=== PATIENT | male | born 1950 | race Caucasian/White ===

== ENCOUNTER 2023-07-22 09:06 | Inpatient (IN) ==
--- NOTE | 2023-06-30 16:13 | PAT Medication Instructions ---
Medication Instructions Date of Service June 30, 2023 Home Medications acebutolol 400 mg capsule 400 mg PO BID acetaminophen 650 mg tablet 650 mg PO Q8H PRN amlodipine 2.5 mg tablet 2.5 mg PO QPM aspirin 81 mg tablet 81 mg PO QPM clopidogrel 75 mg tablet (Plavix) 75 mg PO QAM empagliflozin 10 mg tablet (Jardiance) 10 mg PO QAM ibuprofen 100 mg tablet 200 mg PO Q6H PRN insulin detemir U-100 100 unit/mL subcutaneous solution (Levemir U-100 Insulin) 30 unit subcut HS lisinopril 20 mg tablet 20 mg PO QAM nitroglycerin 0.3 mg sublingual tablet (Nitrostat) mg sublingual UD PRN pregabalin 50 mg capsule (Lyrica) 50 mg PO UD rosuvastatin 40 mg tablet (Crestor) 40 mg PO QPM sitagliptin phos 100 mg-metformin ER 1,000 mg tablet,extend rel 24h mp (Janumet XR) 1 tab PO PM STOP 3 days before surgery empagliflozin 10 mg tablet (Jardiance) 10 mg PO QAM Continue as directed pregabalin 50 mg capsule (Lyrica) 50 mg PO UD nitroglycerin 0.3 mg sublingual tablet (Nitrostat) mg sublingual UD PRN(if nee ded) ASK your surgeon for instructions ibuprofen 100 mg tablet 200 mg PO Q6H PRN ASK your prescriber and surgeon aspirin 81 mg tablet 81 mg PO QPM clopidogrel 75 mg tablet (Plavix) 75 mg PO QAM DO NOT take the morning of surgery lisinopril 20 mg tablet 20 mg PO QAM Take morning of surgery With a small sip of water, OTHERWISE NOTHING TO EAT OR DRINK AFTER MIDNIGHT: acebutolol 400 mg capsule 400 mg PO BID acetaminophen 650 mg tablet 650 mg PO Q8H PRN(if needed) Take evening before surgery acebutolol 400 mg capsule 400 mg PO BID acetaminophen 650 mg tablet 650 mg PO Q8H PRN(if needed) amlodipine 2.5 mg tablet 2.5 mg PO QPM insulin detemir U-100 100 unit/mL subcutaneous solution (Levemir U-100 Insulin) 30 unit subcut HS rosuvastatin 40 mg tablet (Crestor) 40 mg PO QPM sitagliptin phos 100 mg-metformin ER 1,000 mg tablet,extend rel 24h mp (Janumet XR) 1 tab PO PM Other Notes If you have any questions please call us at [phone] or [phone] or [phone] or [phone]
--- NOTE | 2023-07-05 14:12 | Anesthesiology Consultation ---
Date of Service July 05, 2023 Assessment & Plan (1) Encounter for pre-operative examination: Plan - check BSG am DOS. - Case discussed with Dr. Reveles who advised patient can proceed from cardiology clearance standpoint, surgeon's office has been notified by myself that surgeon's office needs to coordinate admitting patient to telemetry per cardiology. Patient made aware, verbalized understanding, denied questions or concerns. - difficult intubation: limited cervical spine extension. - A1c 8% 06/22/23, patient started Jardiance 1 week ago: to PCP and surgeon if A1c needs repeated prior to surgery. Surgeon's office made aware. Optimization form to be faxed with PAT testing to PCP. Acceptable to proceed at current A1c per Giselle with surgeon's office. - cardiology pre-operative evaluation 07/06/23: "...preoperative cardiac clearance, follow up of cardiac arrhythmia and coronary artery disease and venous disease...blood pressure was noted to be elevated...amlodipine 2.5 mg daily was initiated...blood pressure had improved...further medication adjustment was not required...L2-L4 decompression and fusion...ECG reviewed...sinus bradycardia with HR 54. Nonspecific T wave changes are noted. When compared to previous ECG done 03/23/23, heart rate has decreased from 72, ventricular ectopy is not present on current ECG, otherwise unchanged. Significant ST/T wave abnormalities are not present...multiple stents placed to RCA...other coronary arteries had nonobstructive disease...stress testing is not required prior to surgery...ischemic cardiomyopathy...EF 45%...judicious administration of IV fluids in the perioperative period is warranted as he is at risk of volume overload...recommend monitoring volume status closely...Plavix may be d/c'd 5-7 days prior to surgery. We would recommend reinitiating this medication BRYANNA after surgery...does not require further invasive or noninvasive cardiovascular testing or procedures prior to proceeding with planned surgery...intermediate cardiovascular risk candidate. Would recommend telemetry monitoring throughout the perioperative period as he does have a history of bradycardia and ventricular ectopy..." - Awaiting surgeon ordered medical clearance 07/14/23 and testing from [facility] Dr. Handy Larios Card[facility] office 07/06/23, echo, carotid imaging if available. Chart Review Chart Review: Pending: Refer to Additional Notes / Consult section and Patient seen in Pre Admission Testing Teaching & Discussion Pre-Anesthesia Teaching/Discussion Notes: Instructed NPO after midnight before surgery, except medications with 15 cc of water. Medication instructions provided according to the PAT guidelines. History Surgery Operation Date: 07/22/23 07:45 Proposed Procedures p L2-L4 Decompression and Fusion, Spinal Cord Monitoirng - Fred Hook, Height/Weight Height: 5 ft 10 in Weight: 101.4 kg Allergies Allergy/AdvReac Type Severity Reaction Status Date / Time digoxin Allergy Severe Rash Verified 06/30/23 15:04 famotidine [From Pepcid] Allergy Unknown tremors Verified 06/30/23 15:04 contrast Allergy Severe Hives Uncoded 06/30/23 15:04 vicryl suture Allergy Severe wound Uncoded 07/05/23 14:44 dehiscence Medications Home Medications Medication Instructions Recorded Confirmed Last Taken acebutolol 400 mg capsule 400 mg PO BID 06/30/23 06/30/23 Unknown acetaminophen 650 mg tablet 650 mg PO Q8H PRN prn 06/30/23 06/30/23 Unknown amlodipine 2.5 mg tablet 2.5 mg PO QPM 06/30/23 06/30/23 Unknown aspirin 81 mg tablet 81 mg PO QPM 06/30/23 06/30/23 Unknown clopidogrel 75 mg tablet (Plavix) 75 mg PO QAM 06/30/23 06/30/23 Unknown empagliflozin 10 mg tablet 10 mg PO QAM 06/30/23 06/30/23 Unknown (Jardiance) ibuprofen 100 mg tablet 200 mg PO Q6H PRN prn 06/30/23 06/30/23 Unknown insulin detemir U-100 100 unit/mL 30 unit subcut HS 06/30/23 06/30/23 Unknown subcutaneous solution (Levemir U-100 Insulin) lisinopril 20 mg tablet 20 mg PO QAM 06/30/23 06/30/23 Unknown nitroglycerin 0.3 mg sublingual mg sublingual UD PRN prn 06/30/23 Unknown tablet (Nitrostat) pregabalin 50 mg capsule (Lyrica) 50 mg PO UD 06/30/23 06/30/23 Unknown rosuvastatin 40 mg tablet (Crestor) 40 mg PO QPM 06/30/23 06/30/23 Unknown sitagliptin phos 100 mg-metformin 1 tab PO PM 06/30/23 06/30/23 Unknown ER 1,000 mg tablet,extend rel 24h mp (Janumet XR) Past Medical History Medical History Vertigo last episode several yrs ago Carotid artery stenosis s/p right CEA CAD (coronary artery disease) s/p 6 stents 2015 and 2 stents 2003 and 2004; CABG x 1 1991 Implantable loop recorder present for PVCs/EP Degenerative cervical disc denies surgical intervention; denies change or worsening Diabetes mellitus, type 2 IDDM Transient ischemic attack (TIA) [address] scan, no deficits PVC's (premature ventricular contractions) Myocardial Infarction 1991 Hypertension controlled, stable per pt Patient denies h/o seizures, heart failure, blood clots/DVTs or blood transfusions. Exercise / Class Metabolic Activity II 4-5 Yardwork/Stairs/Walk up hill (denies chest discomfort or shortness of breath with 1 FOS) Past Surgical History Surgical History Hx of arthroscopic knee surgery bilateral History of shoulder surgery right 2020 History of lumbar laminectomy 1997 History of colonoscopy History of tonsillectomy History of cataract surgery bilateral History of right-sided carotid endarterectomy 2005, [facility], follows with Dr Murrell History of coronary artery bypass graft single bypass surgery, 1991 History of heart artery stent x 2 last stent placed 2015 [facility], Dr [place] Past Anesthesia History No Hx of Anesthesia Complications and No Family Hx of Anesthesia Complications History of PONV No Hx of PONV and No Hx of Motion Sickness Social History Smoking Status: Never smoker Do You Dip or Chew Tobacco: No Hx Alcohol Use: Yes Alcohol type: beer alcohol intake frequency: a few times a week Hx Substance Use: No Review of Systems Snoring, denies witnessed apneas. Rare palpitations ongoing x yrs, improved with beta arelis; denies associated chest discomfort, shortness of breath or dizziness. Patient denies chest pain, shortness of breath, dyspnea on exertion, reflux, fever, chills, cough, or wheezing. Physical Exam Vital Signs Vitals BP 145/84 P 56 TEMP 97.1 SP02 97% on RA RESP 18 Physical Patient resting comfortably in chair in no acute distress, alert and oriented, responding appropriately throughout visit Limited cervical extension range of motion without pain TMD 3.5 finger breadths Mallampati Score 3 Dentition: edentulous, upper and lower dentures Lungs: normal respiratory effort. Good air movement, clear throughout to auscultation, no adventitious breath sounds Cardiac: regular rate and rhythm, no murmurs noted Carotid arteries: negative bruit bilat Lab Results Anesthesia Preop Results Results Anesthesia Widget: PT 11.1 Seconds (9.0-12.0) 07/05/23 PTT 29 Seconds (21-31) 07/05/23 INR 1.0 (0.9-1.1) 07/05/23 Urine Color Yellow 07/05/23 Urine Appearance Clear (Clear) 07/05/23 Urine pH 5.0 (4.5-7.5) 07/05/23 Urine Specific [place] 1.021 (1.000-1.030) 07/05/23 Urine Protein Negative (Negative) 07/05/23 Urine Glucose (UA) 3+ (Negative) H 07/05/23 Urine Ketones Negative (Negative) 07/05/23 Urine Blood Negative (Negative) 07/05/23 Urine Nitrite Negative (Negative) 07/05/23 Urine Bilirubin Negative (Negative) 07/05/23 Urine Urobilinogen Negative (Negative) 07/05/23 Urine Leukocyte Esterase Negative (Negative) 07/05/23 Blood Type O Positive 07/05/23 Antibody Screen NEGATIVE 07/05/23 Testing Laboratory Results 06/22/2023 WBC: 7.2 H/H: 14.9/42 PLATELETS: 136k SODIUM: 139 POTASSIUM: 4 CHLORIDE: 106 CO2: 23 BUN: 18 CREATININE: 1.2 GLUCOSE: 210 A1c: 8% Electrocardiogram Date: 07/06/23 SB, rate 54 bpm IVCD NST changes Chest X-Ray Date: 07/05/23 No acute chest disease.
[~2023-07-22 09:06] MED LIST: ACETAMINOPHEN 500 MG TAB PO SCH; CeleBREX 200 MG CAP PO SCH; GABAPENTIN 300 MG CAP PO SCH; LR 15ML/HR IV SCH; LR 60ML/HR IV SCH; ceFAZolin 2000MG 2,000 MG/15 ML SYR IV SCH
[2023-07-22] MEDS ORDERED: PROPOFOL IV EMULSION 10 MG/ML 20 ML VIAL IV ONE (09:36)
[2023-07-22] MEDS ORDERED: DEXAMETHASONE SOD INJ 4 MG/ML VIAL ONE (09:36)
[2023-07-22] MEDS ORDERED: LIDOCAINE 2% 2 ML VIAL/AMP(20MG/ML) INFIL ONE (09:36)
[2023-07-22] MEDS ORDERED: fentaNYL citrate PF 100 MCG/2 ML VIAL ONE ×2 (09:36→12:59)
[2023-07-22] MEDS ORDERED: ONDANSETRON INJ 2 MG/ML 2 ML VIAL ONE ×2 (09:36→12:10)
[2023-07-22] MEDS ORDERED: MIDAZOLAM HCL 1 MG/ML 2ML VIAL ONE (09:37)
--- NOTE | 2023-07-22 10:12 | History & Physical Bridge Note ---
Date of Service July 22, 2023 History & Physical Bridge Note I have examined the patient, reviewed the History & Physical and in the interval since the performance of the History & Physical I have noted the following changes of clinical significance: no changes noted
--- NOTE | 2023-07-22 10:13 | History & Physical Report ---
Date of Service July 22, 2023 Assessment & Plan (1) Neurogenic claudication due to lumbar spinal stenosis: Plan: L2-L4 decompression and fusion History of Present Illness Chief Complaint: Back and leg pain Primary Care Provider: Aiden Koch This is a 72-year-old male who presents with chronic persistent back and leg pain after failing course of nonoperative care is here for surgical intervention. Allergies Allergy/AdvReac Type Severity Reaction Status Date / Time digoxin Allergy Severe Rash Verified 07/22/23 09:31 famotidine [From Pepcid] Allergy Unknown tremors Verified 07/22/23 09:31 contrast Allergy Severe Hives Uncoded 07/22/23 09:31 vicryl suture Allergy Severe wound Uncoded 07/22/23 09:31 dehiscence Home Medications Medication Instructions Recorded Confirmed Type acebutolol 400 mg capsule 400 mg PO BID 06/30/23 07/22/23 History acetaminophen 650 mg tablet 650 mg PO Q8H PRN prn 06/30/23 07/22/23 History amlodipine 2.5 mg tablet 2.5 mg PO QPM 06/30/23 07/22/23 History aspirin 81 mg tablet 81 mg PO QPM 06/30/23 07/22/23 History clopidogrel 75 mg tablet (Plavix) 75 mg PO QAM 06/30/23 07/22/23 History empagliflozin 10 mg tablet 10 mg PO QAM 06/30/23 07/22/23 History (Jardiance) ibuprofen 100 mg tablet 200 mg PO Q6H PRN prn 06/30/23 07/22/23 History insulin detemir U-100 100 unit/mL 30 unit subcut HS 06/30/23 07/22/23 History subcutaneous solution (Levemir U-100 Insulin) lisinopril 20 mg tablet 20 mg PO QAM 06/30/23 07/22/23 History nitroglycerin 0.3 mg sublingual mg sublingual UD PRN prn 06/30/23 History tablet (Nitrostat) pregabalin 50 mg capsule (Lyrica) 50 mg PO UD 06/30/23 07/22/23 History rosuvastatin 40 mg tablet (Crestor) 40 mg PO QPM 06/30/23 07/22/23 History sitagliptin phos 100 mg-metformin 1 tab PO PM 06/30/23 07/22/23 History ER 1,000 mg tablet,extend rel 24h mp (Janumet XR) Past Med/Surg History Medical History Vertigo last episode several yrs ago Carotid artery stenosis s/p right CEA CAD (coronary artery disease) s/p 6 stents 2015 and 2 stents 2003 and 2004; CABG x 1 1991 Implantable loop recorder present for PVCs/EP Degenerative cervical disc denies surgical intervention; denies change or worsening Diabetes mellitus, type 2 IDDM Transient ischemic attack (TIA) [address] scan, no deficits PVC's (premature ventricular contractions) Myocardial Infarction 1991 Hypertension controlled, stable per pt Surgical History Hx of arthroscopic knee surgery bilateral History of shoulder surgery right 2020 History of lumbar laminectomy 1997 History of colonoscopy History of tonsillectomy History of cataract surgery bilateral History of right-sided carotid endarterectomy 2004, [facility], follows with Dr Murrell History of coronary artery bypass graft single bypass surgery, 1991 History of heart artery stent x 2 last stent placed 2015 [facility], Dr Madrid Social History Smoking Status: Never smoker Second Hand Exposure: No; Do You Dip or Chew Tobacco: No; Tobacco Cessation Education Requested by Patient: No Hx Alcohol Use: Yes Alcohol type: beer Hx Substance Use: No Preferred Language: Guyanese Copy Worker Required: No Beliefs That Will Affect Care: None Current Living Situation: Spouse Other Information That Helps Us Care for You: No Feels Safe at Home: Yes Safety Concerns: Feels Safe At This Time Assistive Devices: Denture - Upper, Denture - Lower and Glasses Physical Exam Physical Exam: Patient is alert and oriented Heart regular rhythm Lungs clear Results & Data Results & Data Vital Signs (Past 12 Hours) Vital Signs Temp Pulse Resp BP Pulse Ox O2 Del Method 07/22/23 09:36 36.4 C L 56 L 20 176/94 H 97 Room Air
[2023-07-22] MEDS ORDERED: ATROPINE SULFATE 0.1 MG/ML 10ML SYR IV PRN (10:29)
[2023-07-22] MEDS ORDERED: ONDANSETRON INJ 2 MG/ML 2 ML VIAL IV PRN ×2 (10:29→14:51)
[2023-07-22] MEDS ORDERED: ePHEDrine sulfate 50 MG/ML AMP IV PRN (10:29)
[2023-07-22] MEDS ORDERED: ceFAZolin 330 MG/ML 1 GM VIAL ONE (10:45)
[2023-07-22] MEDS ORDERED: BUPIVACAINE/EPINEPHRINE 0.25% 1:200,000 30 ML VIAL ONE (10:45)
[2023-07-22] MEDS ORDERED: ROCURONIUM BROMIDE 10 MG/ML 5 ML VIAL IV ONE (12:10)
[2023-07-22] MEDS ORDERED: SUGAMMADEX SODIUM 200 MG/2 ML VIAL IV ONE (12:10)
[2023-07-22] MEDS ORDERED: FLOSEAL HEMOSTATIC MATRIX 10ML TOP ONE (12:29)
--- NOTE | 2023-07-22 12:56 | Operative Report ---
Post Operative Report Pre & Post Diagnosis Operation Date: 07/22/23 10:45 Pre-Op Diagnosis: Spinal Stenosis of Lumbar Region with Neurogenic Post-Op Diagnosis: Spinal Stenosis of Lumbar Region with Neurogenic I identified the patient and participated in the time-out.: Yes Procedure Operation Date: 07/22/23 10:45 Actual Procedures #1 lumbar decompression with bilateral medial facetectomies and foraminotomies L1-L2, L2-L3, L3-L4. #2 posterior spinal fusion L2-L4. #3 placed posterior instrumentation L2-L4. #4 interbody fusion L2-L3 L3-L4. #5 placement Spira 13 x 26 mm at L2-L3 and L3-L4. #6 placement locally harvested morselized autograft and posterior gutters. #7 placement of Morpheus bone graft in the interbody space and infuse collagen sponge, mass graft and posterior gutters. Surgeon Fred Hook, DO Powerhouse Laborer Christiano Nguyen Estimated Blood Loss 100 Findings See Below The patient is 5 foot 9 weighing over 9 9 kg with a BMI in excess of 32. The patient brought habitus did contribute to technical difficulty requiring her deepest retractors longer instruments in order to perform his procedure. This at least 50% increased operative time. Specimens None Indications This is a 72-year-old male who presents above-mentioned diagnosis after failing course of nonoperative care is here for surgical invention. Description of Procedure Patient was met with identified informed consent obtained. Patient was then taken to the operative suite underwent ablation placed in a prone position on the Amasa table top Rodolfo frame. All bony prominences well-padded eyes inspected to ensure no external pressure placed upon the. This point the lumbar spine was prepped and draped in a sterile fashion. Sharp dissection with the assistance of Bovie cautery performed down to and exposing the lamina and transverse processes of L2-L3-L4 bilaterally. From caudal cephalad fashion complete laminectomy of L3 L2 and partial laminectomy of L1 was performed including bilateral medial facetectomies and foraminotomies addressing severe spinal stenosis. Pedicle screws were then placed in L to L3-L4 bilaterally with assistance of fluoroscopy and the properly sized clifton placed. By way of a transforaminal approach on the right a complete discectomy of L3-L4 was performed endplates guided to subcortical bleeding bone and a 13 x 26 mm Spira cage with Morpheus tapped into position. Then proceeded to L2-L3 and again by way of transforaminal approach right complete discectomy performed endplates guided to subcortical bleeding bone and a 13 x 26 mm Spira cage filled with Morpheus tapped in position. The rods then compressed locked into final position bilaterally. The transverse processes of L2-L3-L4 burred to subcortical bleeding bone. Infuse collagen sponge combined with Koros placed in the posterior gutters. 15 round MANASA drain inserted. The incision was then closed with 1 Vicryl the fascia 2-0 Vicryl subcutaneously and 4 Vicryl for final skin closure. Steri-Strips sterile dressing placed. Patient awakened taken to PACU stable condition. Please note Christiano Nguyen was present at the entire surgery and while the patient positioning complex portion of the surgery and final skin closure. I attest to the content of the Intraoperative Record and any orders documented therein. Any exceptions are noted below.
--- NOTE | 2023-07-22 13:42 | Fluoroscopy Report ---
FL lumbar spine 2-3V CLINICAL HISTORY: L2-L4 DECOMPRESSION AND FUSION COMPARISON STUDY: None. FLUOROSCOPY TIME: 20 seconds. Ka, r: 14.97 mGy FLUOROSCOPIC IMAGES: 2 FINDINGS: Fluoroscopy was provided during L3 to-L3 and L3-L4 discectomy with interbody spacer placeme nt. Posterior decompression is noted. There are bilateral pedicle screws at the L2, L3 and L4 levels with interconnecting rods. Hardware is intact. IMPRESSION: Fluoroscopy provided during L2-L4 decompression and fusion. ACT 112: Negative or not required by law. Electronically signed by: Sean Ariza M.D. 07/22/2023 1:41 PM
[2023-07-22] MEDS: HYDROmorphone INJ 1 MG/ML SYRINGE IV PRN ×6 (13:51→14:16)
--- NOTE | 2023-07-22 14:09 | Anesthesiology Progress Note ---
Date of Service July 22, 2023 Anesthesia Post Procedure Vital Signs Vital Signs: Temp Pulse Pulse Resp BP Pulse Ox O2 Del Method 07/22/23 14:00 49 L 14 159/66 H 99 Nasal Cannula 07/22/23 13:50 50 L 14 166/81 H 98 Room Air 07/22/23 13:40 52 L 14 170/63 H 97 Room Air 07/22/23 13:30 54 L 14 170/50 H 100 Oxymask 07/22/23 13:20 36.1 C L 63 16 157/76 H 96 Oxymask 07/22/23 09:36 36.4 C L 56 L 20 176/94 H 97 Room Air O2 Flow Rate 07/22/23 14:00 2 07/22/23 13:50 07/22/23 13:40 07/22/23 13:30 4 07/22/23 13:20 6 07/22/23 09:36 Pain Intensity Right Leg: Pain Intensity: 6 Transfer of Care Handoff Completed per policy Notes Mental Status: alert / awake / arousable Patient Amnestic to Procedure: Yes Nausea / Vomiting: adequately controlled Pain: adequately controlled Airway Patency, RR, SpO2: stable & adequate BP & HR: stable & adequate Hydration State: stable & adequate Anesthetic Complications: no major complications apparent and Pt Satisfied with anesthetic care
[2023-07-22] MEDS ORDERED: DO NOT ADMINISTER FLU VACCINE PRN (14:51)
[2023-07-22] MEDS ORDERED: PHARMACY GLYCEMIC MGMT CONSULT PRN (14:51)
[2023-07-22] MEDS ORDERED: LORazepam 0.5 MG in SYRINGE 0.25 ML IV PRN (14:51)
[2023-07-22] MEDS ORDERED: hydrOXYzine HCl 25 MG TAB PO PRN (14:51)
[2023-07-22] MEDS ORDERED: DO NOT ADMINISTER PNEUMOCOCCAL VACCINE PRN (14:51)
[2023-07-22] MEDS ORDERED: ACETAMINOPHEN 1,000 MG/100 ML VIAL IV PRN (14:51)
[2023-07-22] MEDS ORDERED: PROMETHAZINE HCL 12.5 MG in SODIUM CHLORIDE 0.9% 50 ML IV PRN (14:51)
[2023-07-22] MEDS ORDERED: ALUMINUM/MAGNESIUM SUSP 30 ML UDC PO PRN (14:51)
[2023-07-22] MEDS ORDERED: diphenhydrAMINE Capsule 25 MG CAP PO PRN (14:51)
[2023-07-22] MEDS ORDERED: NALOXONE HCL 0.4 MG/1 ML VIAL/CARP IV PRN (14:51)
[2023-07-22] MEDS ORDERED: HYDROmorphone INJ 1 MG/ML SYRINGE IV PRN (14:51)
[2023-07-22] MEDS ORDERED: HYDROmorphone INJ 0.5 MG/0.5 ML SYR IV PRN (14:51)
[2023-07-22] MEDS ORDERED: FAMOTIDINE 20 MG TAB PO PRN (14:51)
[2023-07-22] MEDS ORDERED: MAGNESIUM HYDROXIDE SUSP 30 ML UDC PO PRN (14:51)
[2023-07-22] MEDS ORDERED: METOCLOPRAMIDE HCL INJ 5 MG/ML 2 ML VIAL IV PRN (14:51)
[2023-07-22] MEDS ORDERED: bisacodyL 10 MG SUPP PR PRN (14:51)
[2023-07-22] MEDS ORDERED: LORazepam 0.5 MG TAB PO PRN (14:51)
[2023-07-22] MEDS ORDERED: SOD PHOSPHATE/SOD BIPHOSPHATE ENEMA 132 ML BTL PR PRN (14:51)
[2023-07-22] MEDS ORDERED: ONDANSETRON 4 MG OD TAB PO PRN (14:51)
[2023-07-22] MEDS ORDERED: GLUCOSE 10 TAB/TUBE PO PRN (15:15)
[2023-07-22] MEDS ORDERED: GLUCOSE 40% GEL 15 GM TUBE PO PRN (15:15)
[2023-07-22] MEDS ORDERED: CARBOHYDRATES FOR HYPOGLYCEMIA PO PRN (15:15)
[2023-07-22] MEDS ORDERED: GLUCAGON FOR INJ 1 MG VIAL IM PRN (15:15)
[2023-07-22] MEDS ORDERED: DEXTROSE 50% 50 ML SYRINGE IV PRN (15:15)
[2023-07-22] MEDS: SODIUM CHLORIDE 0.9% 1,000 ML IV SCH ×2 (15:18→22:18)
--- NOTE | 2023-07-22 15:27 | Pharmacy Report ---
Pharmacy Glycemic Short Note 2 - Date of Service July 22, 2023 - Glycemic Short BSG Results (Last 24 hours): 07/22/23 07/22/23 07/22/23 09:32 13:35 15:08 POC Glucose 201 H 210 H 260 H OUTPATIENT ANTIDIABETIC REGIMEN: * Levemir 30 units SC HS * Jardiance 10 mg PO daily * Janumet XR 100-1000 qPM HbA1c ordered for 07/23/23 ASSESSMENT: * REBEKAH is a 72 year old male POD #0 s/p L2-L4 decompression/fusion * Received 8 mg IV dexamethasone in OR, 6 mg IV daily ordered ongoing * Preop BSG of 201 mg/dL, postop BSG of 260 mg/dL * Will give aggressive weight-based stress of 3 dosing of basal/bolus PLAN FOR INPATIENT GLYCEMIC CONTROL: * Hold outpatient oral diabetes medications * Basal insulin * Lantus 50 units SC x 1 * Reassess in AM * Bolus insulin * NovoLog per scale ACHS or Q6hrs while NPO * Goal Range: Low 110 mg/dL - High 140 mg/dL * Correction Factor: 15 mg/dL/unit * Nutritional / Prandial insulin per carb ratio of 1 unit per 5 grams CHO consumed
[2023-07-22] MEDS: oxyCODONE HCL IR 5 MG TAB (IMMEDIATE RELEASE) PO PRN ×2 (15:29→20:40)
--- NOTE | 2023-07-22 15:29 | Consultation ---
Date of Consultation July 22, 2023 Assessment & Plan (1) Neurogenic claudication due to lumbar spinal stenosis: Plan #Lumbar stenosis c/b neurogenic claudication -POD 0 decompression -Resume home Lyrica -Pain management per ortho, bowel regimen in place -MANASA drain in place, EBL 100cc -Follow up am CBC and BMP to monitor for post-operative anemia/KATHI #PVCs #Asymptomatic bradycardia -ILR placed in 2019 -On Acebutolol 400mg BID, last taken 07/21 evening -Given rates in high 40s-50s, will hold for now, resume as able -EKG #CAD s/p CABG 1991 #Carotid Artery Stenosis s/p right CEA #HLD #HTN -On ASA/Plavix -Resume ASA -Resume home crestor 40mg qpm -Hold Plavix, resume when appropriate per Ortho service #Hypertension -Resume amlodipine 2.5mg qpm and lisinopril 20mg qam #Diabetes Mellitus Type II -Levemir 30 U qpm,Janumet 100-1000mg Jardiance 10mg daily -Received glargine 40 U post-operatively s/p dexamethasone 6mg in OR -Start 30 U qpm 07/23, SSI -Hold oral hypoglycemics -A1C in am Diet Heart Healthy/DMII DVT per primary service Thank you for this consultation. We will follow the patient with you during their hospital stay. You can reach a member of the [facility] Hospitalist Team 21/02 via the [facility] Hospitalist role in [place] Text. History of Present Illness Requesting Physician: Dr Hook Reason for Consultation: Medical Co-management Attending Physician: Fred Hook, History of Present Illness Mr. Paul Templeton is a 72 year old gentleman with past medical history notable for PVCs, CAD s/p remote CABG, DMTII, HTN, and HLD, who is now POD 0 lumbar decompression with bilateral medial facetectomies. Patient cleared medically from PCP at [facility] on 07/14. Patient states that he is doing well post-operatively. He notes some pain returning, but otherwise denies any symptoms. He states that he last took his medications last evening 07/21. He denies any chest pain, palpitations, dizziness, or other acute concerns. Heart rates trending in [id number] 50s. Allergies Allergy/AdvReac Type Severity Reaction Status Date / Time digoxin Allergy Severe Rash Verified 07/22/23 09:31 famotidine [From Pepcid] Allergy Unknown tremors Verified 07/22/23 09:31 suture Allergy Vicryl = Verified 07/22/23 10:32 wound dehiscence contrast Allergy Severe Hives Uncoded 07/22/23 09:31 Home Medications Medication Instructions Recorded Confirmed Type acebutolol 400 mg capsule 400 mg PO BID 06/30/23 07/22/23 History acetaminophen 650 mg tablet 650 mg PO Q8H PRN prn 06/30/23 07/22/23 History amlodipine 2.5 mg tablet 2.5 mg PO QPM 06/30/23 07/22/23 History aspirin 81 mg tablet 81 mg PO QPM 06/30/23 07/22/23 History clopidogrel 75 mg tablet (Plavix) 75 mg PO QAM 06/30/23 07/22/23 History empagliflozin 10 mg tablet 10 mg PO QAM 06/30/23 07/22/23 History (Jardiance) ibuprofen 100 mg tablet 200 mg PO Q6H PRN prn 06/30/23 07/22/23 History insulin detemir U-100 100 unit/mL 30 unit subcut HS 06/30/23 07/22/23 History subcutaneous solution (Levemir U-100 Insulin) lisinopril 20 mg tablet 20 mg PO QAM 06/30/23 07/22/23 History nitroglycerin 0.3 mg sublingual mg sublingual UD PRN prn 06/30/23 History tablet (Nitrostat) pregabalin 50 mg capsule (Lyrica) 50 mg PO UD 06/30/23 07/22/23 History rosuvastatin 40 mg tablet (Crestor) 40 mg PO QPM 06/30/23 07/22/23 History sitagliptin phos 100 mg-metformin 1 tab PO PM 06/30/23 07/22/23 History ER 1,000 mg tablet,extend rel 24h mp (Janumet XR) oxycodone 5 mg tablet 5 mg PO Q6H PRN pain #30 tabs 07/22/23 Rx tramadol 50 mg tablet 50 mg PO Q6H PRN pain, moderate 07/22/23 Rx #30 tabs Patient History Medical History Vertigo last episode several yrs ago Carotid artery stenosis s/p right CEA CAD (coronary artery disease) s/p 6 stents 2015 and 2 stents 2003 and 2004; CABG x 1 1991 Implantable loop recorder present for PVCs/EP Degenerative cervical disc denies surgical intervention; denies change or worsening Diabetes mellitus, type 2 IDDM Transient ischemic attack (TIA) [address] scan, no deficits PVC's (premature ventricular contractions) Myocardial Infarction 1991 Hypertension controlled, stable per pt Surgical History Hx of arthroscopic knee surgery bilateral History of shoulder surgery right 2020 History of lumbar laminectomy 1997 History of colonoscopy History of tonsillectomy History of cataract surgery bilateral History of right-sided carotid endarterectomy 2005, [facility], follows with Dr Murrell History of coronary artery bypass graft single bypass surgery, 1991 History of heart artery stent x 2 last stent placed 2015 [facility], Dr [place] Social History Smoking Status: Former smoker Tobacco Type: Cigarettes Second Hand Exposure: No; Do You Dip or Chew Tobacco: No; Tobacco Cessation Education Requested by Patient: No Hx Alcohol Use: Yes Alcohol type: beer Hx Substance Use: No Preferred Language: Afghan Communication Ability: Effective Participant Administrator Required: No Beliefs That Will Affect Care: None Current Living Situation: Spouse Other Information That Helps Us Care for You: No Feels Safe at Home: Yes Safety Concerns: Feels Safe At This Time Assistive Devices: Denture - Upper, Denture - Lower, Glasses and Hospital Bed Review of Systems Review of Systems: All systems reviewed & are unremarkable except as noted in Subjective Physical Exam Constitutional: WD/WN, vitals as above Respiratory: normal respiratory effort, lungs clear to auscultation Cardiovascular: bradycardic, regular Gastrointestinal (Abdomen): normal bowel sounds, soft, nontender, no hepatosplenomegaly Results & Data Vital Signs (Past 12 Hours) Vital Signs Temp Pulse Pulse Resp BP Pulse Ox O2 Del Method 07/22/23 15:10 36.4 C L 46 L 16 143/68 H 92 Room Air 07/22/23 14:53 36.9 C 47 L 16 145/72 H 95 Room Air 07/22/23 14:30 50 L 16 130/64 97 Nasal Cannula 07/22/23 14:20 36.5 C 47 L 16 151/60 H 94 Nasal Cannula 07/22/23 14:10 48 L 16 152/73 H 97 Nasal Cannula 07/22/23 14:00 49 L 14 159/66 H 99 Nasal Cannula 07/22/23 13:50 50 L 14 166/81 H 98 Room Air 07/22/23 13:40 52 L 14 170/63 H 97 Room Air 07/22/23 13:30 54 L 14 170/50 H 100 Oxymask 07/22/23 13:20 36.1 C L 63 16 157/76 H 96 Oxymask 07/22/23 09:36 36.4 C L 56 L 20 176/94 H 97 Room Air O2 Flow Rate 07/22/23 15:10 07/22/23 14:53 07/22/23 14:30 2 07/22/23 14:20 2 07/22/23 14:10 2 07/22/23 14:00 2 07/22/23 13:50 07/22/23 13:40 07/22/23 13:30 4 07/22/23 13:20 6 07/22/23 09:36 Medications Administered Home Medications Medication Instructions Recorded Confirmed Last Taken acebutolol 400 mg capsule 400 mg PO BID 06/30/23 07/22/23 07/21/23 05:00 acetaminophen 650 mg tablet 650 mg PO Q8H PRN prn 06/30/23 07/22/23 07/21/23 21:00 amlodipine 2.5 mg tablet 2.5 mg PO QPM 06/30/23 07/22/23 07/21/23 05:00 aspirin 81 mg tablet 81 mg PO QPM 06/30/23 07/22/23 07/21/23 21:00 clopidogrel 75 mg tablet (Plavix) 75 mg PO QAM 06/30/23 07/22/23 07/13/23 empagliflozin 10 mg tablet 10 mg PO QAM 06/30/23 07/22/23 07/18/23 05:00 (Jardiance) ibuprofen 100 mg tablet 200 mg PO Q6H PRN prn 06/30/23 07/22/23 07/18/23 insulin detemir U-100 100 unit/mL 30 unit subcut HS 06/30/23 07/22/23 07/21/23 21:00 subcutaneous solution (Levemir 30 units U-100 Insulin) lisinopril 20 mg tablet 20 mg PO QAM 06/30/23 07/22/23 07/21/23 05:00 nitroglycerin 0.3 mg sublingual mg sublingual UD PRN prn 06/30/23 Unknown tablet (Nitrostat) pregabalin 50 mg capsule (Lyrica) 50 mg PO UD 06/30/23 07/22/23 Unknown rosuvastatin 40 mg tablet (Crestor) 40 mg PO QPM 06/30/23 07/22/23 07/21/23 21:00 sitagliptin phos 100 mg-metformin 1 tab PO PM 06/30/23 07/22/23 07/21/23 21:00 ER 1,000 mg tablet,extend rel 24h mp (Janumet XR) oxycodone 5 mg tablet 5 mg PO Q6H PRN pain #30 tabs 07/22/23 Unknown tramadol 50 mg tablet 50 mg PO Q6H PRN pain, moderate 07/22/23 Unknown #30 tabs Active Medications Generic Name Dose Route Start Last Admin Trade Name Freq PRN Reason Stop Dose Admin Hydromorphone HCl 0.25 mg 07/22/23 10:29 07/22/23 14:16 Hydromorphone Inj 1 Mg/Ml Syringe IV 07/22/23 18:29 0.25 mg Q5M PRN Administration PACU Use Only-Pain Sodium Chloride 1,000 mls @ 150 mls/hr 07/22/23 14:51 07/22/23 15:18 Nss IV 08/21/23 14:50 150 mls/hr .Q6H40M GARY Administration Oxycodone HCl 5 - 10 mg 07/22/23 14:51 07/22/23 15:29 Oxycodone Hcl Ir 5 Mg Tab (Immediate Release) PO 08/05/23 14:50 10 mg Q4H PRN Administration Pain & Pre PT
[2023-07-22] MEDS ORDERED: LANTUS PER UNIT CHARGE SC ONE ×3 (15:30→17:45)
[2023-07-22] MEDS: INSULIN ASPART PER UNIT CHARGE SC SCH ×3 (16:57→21:07)
[2023-07-22] MEDS: ACETAMINOPHEN 500 MG TAB PO PRN (17:58)
[2023-07-22] MEDS: ASPIRIN 81 MG ECTAB PO SCH (20:57)
[2023-07-22] MEDS: ROSUVASTATIN CALCIUM 20 MG TAB PO SCH (20:57)
[2023-07-22] MEDS: DOCUSATE SODIUM/SENNA 50/8.6MG TAB PO SCH (20:57)
[2023-07-22] MEDS: amLODIPine BESYLATE 5 MG TAB PO SCH (20:58)
[2023-07-22] MEDS: ceFAZolin 2000MG 2,000 MG/15 ML SYR IV SCH (20:58)
[2023-07-22] MEDS: PREGABALIN 50 MG CAP PO SCH (20:58)
[2023-07-22] MEDS: traMADol HCL 50 MG TABLET PO PRN (23:39)
[2023-07-23] MEDS: ceFAZolin 2000MG 2,000 MG/15 ML SYR IV SCH (03:42)
[2023-07-23] MEDS: SODIUM CHLORIDE 0.9% 1,000 ML IV SCH (03:49)
[2023-07-23] MEDS: oxyCODONE HCL IR 5 MG TAB (IMMEDIATE RELEASE) PO PRN ×2 (05:48→14:32)
[2023-07-23] MEDS: POLYETHYLENE (MIRALAX) 17 GM PACK PO SCH ×3 (05:50→17:53)
[2023-07-23 06:26] LABS: Basophils # (auto) 0.01 K/uL (0.00-0.20); Basophils % (auto) 0.1 %; Eosinophils # (auto) 0.01 K/uL (0.00-0.50); Eosinophils % (auto) 0.1 %; Hematocrit (blood only) 33.7 % (42.0-52.0); Immature Granulocytes # (auto) 0.05 K/uL (0.01-0.20); Immature Granulocytes % (auto) 0.5 %; Lymphocytes # (auto) 1.35 K/uL (1.20-3.40); Lymphocytes % (auto) 13.9 %; Mean Corpuscular Hemoglobin 31.6 pg (25.0-34.0); Mean Corpuscular Hgb Conc 35.6 g/dL (32.0-36.0); Mean Corpuscular Volume 88.7 fL (80.0-100.0); Mean Platelet Volume 10.2 fL (9.4-12.4); Monocytes # (auto) 0.43 K/uL (0.11-0.59); Monocytes % (auto) 4.4 %; Neutrophils # (auto) 7.85 K/uL (1.40-6.50); Platelet Count 174 K/uL (130-400); RDW Standard Deviation 38.5 fL (36.4-46.3)
[2023-07-23 06:42] LABS: BUN Creatinine Ratio 10.9 (10-20); Calcium 8.5 mg/dl (8.6-10.3); Creatinine Clr Calc Pharmacy 86.8 ml/min; Est GFR (African American) 97.3 ml/min; Potassium 3.8 mmol/L (3.5-5.1)
[2023-07-23 07:12] LABS: Estimated Average Glucose 194 mg/dl; Hemoglobin A1C 8.4 % (4.5-5.6)
[2023-07-23] MEDS: INSULIN ASPART PER UNIT CHARGE SC SCH ×4 (08:29→20:37)
[2023-07-23] MEDS: traMADol HCL 50 MG TABLET PO PRN ×2 (08:30→19:28)
[2023-07-23] MEDS: lisinopril 20 MG TAB PO SCH (08:31)
[2023-07-23] MEDS: dexAMETHasone 6 MG in SYRINGE 0 ML IV SCH (08:31)
[2023-07-23] MEDS: PREGABALIN 100 MG CAP PO SCH (08:38)
[2023-07-23] MEDS ORDERED: EMPAGLIFLOZIN 10 MG TAB PO SCH (09:00)
--- NOTE | 2023-07-23 10:17 | Orthopedic Progress Note ---
Date of Service July 23, 2023 Assessment & Plan (1) Neurogenic claudication due to lumbar spinal stenosis: Plan: At this time initiate physical therapy monitor his MANASA operatively discharge home next few days. Admission and Anticipated Discharge Date Admission Date: July 22, 2023 Subjective Back pain controlled leg pain improved Physical Exam Physical Exam: Patient is comfortable. Is constricted testing. Results & Data Vital Signs (Past 12 Hours) Vital Signs Temp Pulse Resp BP Pulse Ox O2 Del Method 07/23/23 07:48 36.4 C L 54 L 17 159/69 H 98 Room Air 07/23/23 03:41 36.4 C L 54 L 16 152/76 H 97 Room Air 07/22/23 23:34 36.3 C L 69 18 157/68 H 98 Room Air Queries Orthopedic Spine Obesity: Yes
--- NOTE | 2023-07-23 14:27 | Hospitalist Progress Note ---
Date of Service July 23, 2023 Assessment & Plan (1) Neurogenic claudication due to lumbar spinal stenosis: Plan #Lumbar stenosis c/b neurogenic claudication -POD #1 decompression -Resume home Lyrica -Pain management per ortho, bowel regimen in place -MANASA drain in place, EBL 100cc -Follow up am CBC and BMP to monitor for post-operative anemia/KATHI -Pain seems to be reasonably controlled without any radiation -Hemodynamically stable with unremarkable CBC and PRP #PVCs #Asymptomatic bradycardia -ILR placed in 2019 -On Acebutolol 400mg BID, last taken 07/21 evening -Given rates in high 40s-50s, will hold for now, resume as able -Rate remains controlled at 61 #CAD s/p CABG 1991 #Carotid Artery Stenosis s/p right CEA #HLD #HTN -On ASA/Plavix -Resume ASA -Resume home crestor 40mg qpm -Hold Plavix, resume when appropriate per Ortho service #Hypertension -Resume amlodipine 2.5mg qpm and lisinopril 20mg qam -Blood pressure remains on the upper side and is expected to improve #Diabetes Mellitus Type II -Levemir 30 U qpm,Janumet 100-1000mg Jardiance 10mg daily -Received glargine 40 U post-operatively s/p dexamethasone 6mg in OR -Start 30 U qpm 07/23, SSI -Hold oral hypoglycemics -Hemoglobin A1c is high at 8.4 Diet Heart Healthy/DMII DVT per primary service Thank you for this consultation. We will follow the patient with you during their hospital stay. Remains medically stable Admission and Anticipated Discharge Date Admission Date: July 22, 2023 Subjective 07/23/2023 The patient was seen and examined in medical floor He is a status post lumbar back surgery and has been doing well Minimal pain in the back without radiation Denies any other symptoms Review of Systems Review of Systems: All systems reviewed and are unremarkable except as noted below Physical Exam Physical Exam: Sitting at the edge of the bed without any apparent distress Constitutional: well developed, well nourished and + obese; not ill appearing Eyes: PERRL, conjunctivae normal, anicteric sclerae ENMT: external ear and nose normal, oropharynx normal Neck: trachea midline, no thyromegaly Respiratory: no respiratory distress Auscultation: lungs clear to auscultation bilaterally Cardiovascular: Rate/Rhythm: regular rate and regular rhythm; not tachycardic Heart Sounds: normal S1 and normal S2; no murmur Extremities: no edema Gastrointestinal (Abdomen): Inspection/Auscultation: normal bowel sounds; abdomen not distended Percussion/Palpation: abdomen soft; abdomen nontender Musculoskeletal: Low back pain and tenderness on palpation status post lumbar surgery Neurologic: normal touch/pain/proprioception and moves all extremities; no focal motor deficits Psychiatric: A+Ox3, euthymic affect Lymphatic: no cervical or axillary lymphadenopathy Results & Data Results & Data Vital Signs (Past 12 Hours) Vital Signs Temp Pulse Resp BP Pulse Ox O2 Del Method 07/23/23 14:15 36.6 C 61 17 153/71 H 96 Room Air 07/23/23 08:30 Room Air 07/23/23 07:48 36.4 C L 54 L 17 159/69 H 98 Room Air 07/23/23 03:41 36.4 C L 54 L 16 152/76 H 97 Room Air Laboratory Results Short CBC 07/23/23 Range/Units 05:54 WBC 9.70 (4.8-10.8) K/ul Hgb 12.0 L (14.0-18.0) g/dl Hct 33.7 L (42.0-52.0) % Plt Count 174 (130-400) K/uL BMP 07/23/23 05:54 Sodium 138 Potassium 3.8 Chloride 108 H Carbon Dioxide 23 BUN 10 Creatinine 0.92 Glucose 177 H Calcium 8.5 L Medications Administered Current Inpatient Medications Acetaminophen (Acetaminophen 500 Mg Tab) 1,000 mg PO Q8H PRN PRN Reason: MILD Pain Scale 1,2,3 & Pre PT Stop: 08/21/23 14:50 Last Admin: 07/22/23 17:58 Dose: 1,000 mg Al Hydrox/Mg Hydrox/Simethicone (Aluminum/Magnesium Susp 30 Ml Udc) 30 ml PO Q6H PRN PRN Reason: Dyspepsia Stop: 08/21/23 14:50 Amlodipine Besylate (Amlodipine Besylate 5 Mg Tab) 2.5 mg PO QPM GARY Stop: 08/21/23 20:59 Last Admin: 07/22/23 20:58 Dose: 2.5 mg Aspirin (Aspirin 81 Mg Ectab) 81 mg PO QPM GARY Stop: 08/21/23 20:59 Last Admin: 07/22/23 20:57 Dose: 81 mg Bisacodyl (Bisacodyl 10 Mg Supp) 10 mg OR DAILY PRN PRN Reason: Constipation Stop: 08/21/23 14:50 Dextrose (Dextrose 50% 50 Ml Syringe) 25 - 50 ml IV UD PRN; Protocol PRN Reason: Hypoglycemia Protocol Stop: 08/21/23 15:14 Diphenhydramine HCl (Diphenhydramine Capsule 25 Mg Cap) 25 mg PO Q6H PRN PRN Reason: Allergic Rhinitis/Insomnia Stop: 08/21/23 14:50 Famotidine (Famotidine 20 Mg Tab) 20 mg PO Q12H PRN PRN Reason: Dyspepsia Stop: 08/21/23 14:50 Glucagon (Glucagon For Inj 1 Mg Vial) 1 mg IM UD PRN; Protocol PRN Reason: Hypoglycemia Protocol Stop: 08/21/23 15:14 Glucose (Glucose 40% Gel 15 Gm Tube) 15 - 30 gm PO UD PRN; Protocol PRN Reason: Hypoglycemia Protocol Stop: 08/21/23 15:14 Glucose (Glucose 10 Tab/Tube) 4 - 8 tab PO UD PRN; Protocol PRN Reason: Hypoglycemia Protocol Stop: 08/21/23 15:14 Hydromorphone HCl (Hydromorphone Inj 0.5 Mg/0.5 Ml Syr) 0.5 mg IV Q3H PRN PRN Reason: MODERATE Pain (Scale 4,5,6) & Pre PT Stop: 08/05/23 14:50 Hydromorphone HCl (Hydromorphone Inj 1 Mg/Ml Syringe) 1 mg IV Q3H PRN PRN Reason: SEVERE Pain (Scale 7,8,9,10) Stop: 08/05/23 14:50 Hydroxyzine HCl (Hydroxyzine Hcl 25 Mg Tab) 25 mg PO Q8H PRN PRN Reason: Anxiety Stop: 08/21/23 14:50 Promethazine HCl 12.5 mg/ (Sodium Chloride) 50.5 mls @ 202 mls/hr IV Q6H PRN PRN Reason: Nausea &/or Vomiting Stop: 08/21/23 14:50 Acetaminophen (Ofirmev) 1,000 mg in 100 mls @ 400 mls/hr IV Q8H PRN PRN Reason: Pain Rating 1-3 & Pre PT Stop: 07/23/23 14:51 Lorazepam 0.5 mg/ Syringe 0.5 mls @ 2 mls/min IV Q8H PRN; Protocol PRN Reason: Sedation/Anxiety Stop: 08/21/23 14:50 Dexamethasone 6 mg/ Syringe 1.5 mls @ 1 mls/min IV DAILY [facility] Stop: 07/25/23 09:02 Last Admin: 07/23/23 08:31 Dose: 1 mls/min Influenza Virus Vaccine Quadrival (Do Not Administer Flu Vaccine) 1 each N/A PRN PRN PRN Reason: Notification Stop: 08/21/23 14:50 Insulin Aspart (Insulin Aspart Per Unit Charge) 0 units SC ACHS [facility] Stop: 08/21/23 15:29 Last Admin: 07/23/23 12:27 Dose: 7 units Insulin Glargine (Lantus Per Unit Charge) 30 units SQ QPM [facility] Stop: 08/22/23 20:59 Lisinopril (Lisinopril 20 Mg Tab) 20 mg PO QAM GARY Stop: 08/22/23 08:59 Last Admin: 07/23/23 08:31 Dose: 20 mg Lorazepam (Lorazepam 0.5 Mg Tab) 0.5 mg PO Q8H PRN PRN Reason: Sedation/Anxiety Stop: 08/21/23 14:50 Magnesium Hydroxide (Magnesium Hydroxide Susp 30 Ml Udc) 30 ml PO Q24H PRN PRN Reason: Constipation Stop: 08/21/23 14:50 Metoclopramide HCl (Metoclopramide Hcl Inj 5 Mg/Ml 2 Ml Vial) 10 mg IV Q6H PRN PRN Reason: Nausea &/or Vomiting Stop: 08/21/23 14:50 Miscellaneous (Order Awaiting Action: Acebutolol) 1 each N/A QS [facility] Stop: 08/21/23 15:59 Last Admin: 07/23/23 08:22 Dose: Not Given Miscellaneous (Carbohydrates For Hypoglycemia ) 15 - 30 gm PO UD PRN PRN Reason: Hypoglycemia Treatment Stop: 08/21/23 15:14 Miscellaneous Information (Pharmacy Glycemic Mgmt Consult) 1 each N/A UD PRN PRN Reason: Consult Stop: 08/21/23 14:50 Naloxone HCl (Naloxone Hcl 0.4 Mg/1 Ml Vial/Carp) 0.1 mg IV Q5M PRN PRN Reason: Oversedation/Resp depression Stop: 08/21/23 14:50 Ondansetron HCl (Ondansetron Inj 2 Mg/Ml 2 Ml Vial) 4 mg IV Q6H PRN PRN Reason: Nausea &/or Vomiting Stop: 08/21/23 14:50 Ondansetron HCl (Ondansetron 4 Mg Od Tab) 4 mg PO Q6H PRN PRN Reason: Nausea Stop: 08/21/23 14:50 Oxycodone HCl (Oxycodone Hcl Ir 5 Mg Tab (Immediate Release)) 5 - 10 mg PO Q4H PRN PRN Reason: Pain & Pre PT Stop: 08/05/23 14:50 Last Admin: 07/23/23 05:48 Dose: 10 mg Pneumococcal Polyvalent Vaccine (Do Not Administer Pneumococcal Vaccine) 1 each N/A PRN PRN PRN Reason: Notification Stop: 08/21/23 14:50 Polyethylene Glycol (Polyethylene (Miralax) 17 Gm Pack) 17 gm PO Q6 GARY Stop: 08/22/23 05:59 Last Admin: 07/23/23 12:20 Dose: 17 gm Pregabalin (Pregabalin 50 Mg Cap) 50 mg PO HS GARY Stop: 08/21/23 20:59 Last Admin: 07/22/23 20:58 Dose: 50 mg Pregabalin (Pregabalin 100 Mg Cap) 100 mg PO QAM GARY Stop: 08/22/23 08:59 Last Admin: 07/23/23 08:38 Dose: 100 mg Rosuvastatin Calcium (Rosuvastatin Calcium 20 Mg Tab) 40 mg PO QPM GARY Stop: 08/21/23 20:59 Last Admin: 07/22/23 20:57 Dose: 40 mg Senna/Docusate Sodium (Docusate Sodium/Senna 50/8.6mg Tab) 2 tab PO HS GARY Stop: 08/21/23 20:59 Last Admin: 07/22/23 20:57 Dose: 2 tab Sodium Biphosphate/Sodium Phosphate (Sod Phosphate/Sod Biphosphate Enema 132 Ml Btl) 132 ml OR ONE PRN PRN Reason: Constipation Stop: 08/21/23 14:50 Tramadol HCl (Tramadol Hcl 50 Mg Tablet) 50 - 100 mg PO Q4H PRN PRN Reason: Moderate-Severe pain & Pre PT Stop: 08/21/23 14:50 Last Admin: 07/23/23 08:30 Dose: 100 mg
[2023-07-23] MEDS: ASPIRIN 81 MG ECTAB PO SCH (20:34)
[2023-07-23] MEDS: DOCUSATE SODIUM/SENNA 50/8.6MG TAB PO SCH (20:35)
[2023-07-23] MEDS: amLODIPine BESYLATE 5 MG TAB PO SCH (20:35)
[2023-07-23] MEDS: PREGABALIN 50 MG CAP PO SCH (20:36)
[2023-07-23] MEDS: ROSUVASTATIN CALCIUM 20 MG TAB PO SCH (20:36)
[2023-07-23] MEDS: LANTUS PER UNIT CHARGE SQ SCH (20:37)
[2023-07-23] MEDS ORDERED: LANTUS PER UNIT CHARGE SQ SCH (21:00)
[2023-07-24] MEDS: POLYETHYLENE (MIRALAX) 17 GM PACK PO SCH ×4 (00:19→16:49)
[2023-07-24] MEDS: oxyCODONE HCL IR 5 MG TAB (IMMEDIATE RELEASE) PO PRN (06:01)
[2023-07-24 06:35] LABS: Basophils # (auto) 0.01 K/uL (0.00-0.20); Basophils % (auto) 0.1 %; Eosinophils # (auto) 0.01 K/uL (0.00-0.50); Eosinophils % (auto) 0.1 %; Hematocrit (blood only) 32.7 % (42.0-52.0); Hemoglobin 11.7 g/dl (14.0-18.0); Immature Granulocytes # (auto) 0.04 K/uL (0.01-0.20); Immature Granulocytes % (auto) 0.4 %; Lymphocytes % (auto) 20.6 %; Mean Corpuscular Hemoglobin 31.7 pg (25.0-34.0); Mean Corpuscular Hgb Conc 35.8 g/dL (32.0-36.0); Mean Corpuscular Volume 88.6 fL (80.0-100.0); Mean Platelet Volume 10.4 fL (9.4-12.4); Monocytes # (auto) 0.66 K/uL (0.11-0.59); Monocytes % (auto) 6.8 %; Neutrophils # (auto) 6.98 K/uL (1.40-6.50); Platelet Count 171 K/uL (130-400); RDW Coefficient of Variation 12.2 % (11.5-14.5); RDW Standard Deviation 39.7 fL (36.4-46.3); Red Blood Count 3.69 M/uL (4.70-6.10)
[2023-07-24 07:03] LABS: Anion Gap 5 (3-11); BUN Creatinine Ratio 14.1 (10-20); Blood Urea Nitrogen 12 mg/dl (6-23); Carbon Dioxide 28 mmol/L (21-32); Chloride 105 mmol/L (98-107); Creatinine Clr Calc Pharmacy 93.9 ml/min; Est GFR (African American) 102.3 ml/min; Est GFR (Non-African American) 88.3 ml/min; Glucose 112 mg/dl (70-99(Fasting)); Sodium 138 mmol/L (136-145)
[2023-07-24] MEDS: PREGABALIN 100 MG CAP PO SCH (08:06)
[2023-07-24] MEDS: INSULIN ASPART PER UNIT CHARGE SC SCH ×4 (08:06→20:39)
[2023-07-24] MEDS: lisinopril 20 MG TAB PO SCH (08:06)
[2023-07-24] MEDS: dexAMETHasone 6 MG in SYRINGE 0 ML IV SCH (08:07)
--- NOTE | 2023-07-24 09:41 | Orthopedic Progress Note ---
Date of Service July 24, 2023 Assessment & Plan (1) Neurogenic claudication due to lumbar spinal stenosis: Plan: We will continue physical therapy today monitor his MANASA output anticipate discharge home tomorrow. Admission and Anticipated Discharge Date Admission Date: July 22, 2023 Subjective Back pain controlled leg pain markedly improved Physical Exam Physical Exam: Patient is currently in bed. Is comfortable. Is neurologically intact. Results & Data Vital Signs (Past 12 Hours) Vital Signs Temp Pulse Resp BP Pulse Ox O2 Del Method 07/24/23 07:06 36.7 C 51 L 16 152/72 H 98 Room Air Queries Orthopedic Spine Obesity: Yes
[2023-07-24] MEDS: traMADol HCL 50 MG TABLET PO PRN (09:55)
--- NOTE | 2023-07-24 13:23 | Hospitalist Progress Note ---
Date of Service July 24, 2023 Assessment & Plan (1) Neurogenic claudication due to lumbar spinal stenosis: Plan #Lumbar stenosis c/b neurogenic claudication -POD #2 decompression -Resume home Lyrica -Pain management per ortho, bowel regimen in place -MANASA drain in place, EBL 100cc -Follow up am CBC and BMP to monitor for post-operative anemia/KATHI -Pain seems to be reasonably controlled without any radiation -Hemodynamically stable with unremarkable CBC and PRP #PVCs #Asymptomatic bradycardia -ILR placed in 2019 -On Acebutolol 400mg BID, last taken 07/21 evening -Given rates in high 40s-50s, will hold for now, resume as able -Rate remains controlled at 61 -Electrolytes are normal no episode of PVCs with symptoms #CAD s/p CABG 1991 #Carotid Artery Stenosis s/p right CEA #HLD #HTN -On ASA/Plavix -Resume ASA -Resume home crestor 40mg qpm -Hold Plavix, resume when appropriate per Ortho service -Plavix not yet started likely secondary to ongoing oozing from the surgery site #Hypertension -Resume amlodipine 2.5mg qpm and lisinopril 20mg qam -Blood pressure remains on the upper side and is expected to improve #Diabetes Mellitus Type II -Levemir 30 U qpm,Janumet 100-1000mg Jardiance 10mg daily -Received glargine 40 U post-operatively s/p dexamethasone 6mg in OR -Start 30 U qpm 07/23, SSI -Hold oral hypoglycemics -Hemoglobin A1c is high at 8.4 Diet Heart Healthy/DMII DVT per primary service Thank you for this consultation. We will follow the patient with you during their hospital stay. Remains medically stable Admission and Anticipated Discharge Date Admission Date: July 22, 2023 Subjective 07/23/2023 The patient was seen and examined in medical floor He is a status post lumbar back surgery and has been doing well Minimal pain in the back without radiation Denies any other symptoms 07/24/2023 The patient was seen and examined in medical floor He is status post lumbar back surgery and has been doing much better Minimal back pain without radiation Denies any other symptoms Review of Systems Review of Systems: All systems reviewed and are unremarkable except as noted below Physical Exam Physical Exam: Sitting at the edge of the bed without any apparent distress Constitutional: well developed, well nourished and + obese; not ill appearing Eyes: PERRL, conjunctivae normal, anicteric sclerae ENMT: external ear and nose normal, oropharynx normal Neck: trachea midline, no thyromegaly Respiratory: no respiratory distress Auscultation: lungs clear to auscultation bilaterally Cardiovascular: Rate/Rhythm: regular rate and regular rhythm; not tachycardic Heart Sounds: normal S1 and normal S2; no murmur Extremities: no edema Gastrointestinal (Abdomen): Inspection/Auscultation: normal bowel sounds; abdomen not distended Percussion/Palpation: abdomen soft; abdomen nontender Musculoskeletal: Localized tenderness at the surgery site at the back but no acute arthritis involving any other joint Neurologic: normal touch/pain/proprioception and moves all extremities; no focal motor deficits Psychiatric: A+Ox3, euthymic affect Lymphatic: no cervical or axillary lymphadenopathy Results & Data Results & Data Vital Signs (Past 12 Hours) Vital Signs Temp Pulse Resp BP Pulse Ox O2 Del Method 07/24/23 07:06 36.7 C 51 L 16 152/72 H 98 Room Air Laboratory Results Short CBC 07/24/23 Range/Units 05:52 WBC 9.70 (4.8-10.8) K/ul Hgb 11.7 L (14.0-18.0) g/dl Hct 32.7 L (42.0-52.0) % Plt Count 171 (130-400) K/uL BMP 07/24/23 07/24/23 05:52 07:56 Sodium 138 Potassium TNP 3.8 Chloride 105 Carbon Dioxide 28 BUN 12 Creatinine 0.85 Glucose 112 H Calcium 9.0 Medications Administered Current Inpatient Medications Acetaminophen (Acetaminophen 500 Mg Tab) 1,000 mg PO Q8H PRN PRN Reason: MILD Pain Scale 1,2,3 & Pre PT Stop: 08/21/23 14:50 Last Admin: 07/22/23 17:58 Dose: 1,000 mg Al Hydrox/Mg Hydrox/Simethicone (Aluminum/Magnesium Susp 30 Ml Udc) 30 ml PO Q6H PRN PRN Reason: Dyspepsia Stop: 08/21/23 14:50 Amlodipine Besylate (Amlodipine Besylate 5 Mg Tab) 2.5 mg PO QPM GARY Stop: 08/21/23 20:59 Last Admin: 12/23/23 20:35 Dose: 2.5 mg Aspirin (Aspirin 81 Mg Ectab) 81 mg PO QPM GARY Stop: 08/21/23 20:59 Last Admin: 07/23/23 20:34 Dose: 81 mg Bisacodyl (Bisacodyl 10 Mg Supp) 10 mg RI DAILY PRN PRN Reason: Constipation Stop: 08/21/23 14:50 Dextrose (Dextrose 50% 50 Ml Syringe) 25 - 50 ml IV UD PRN; Protocol PRN Reason: Hypoglycemia Protocol Stop: 08/21/23 15:14 Diphenhydramine HCl (Diphenhydramine Capsule 25 Mg Cap) 25 mg PO Q6H PRN PRN Reason: Allergic Rhinitis/Insomnia Stop: 08/21/23 14:50 Famotidine (Famotidine 20 Mg Tab) 20 mg PO Q12H PRN PRN Reason: Dyspepsia Stop: 08/21/23 14:50 Glucagon (Glucagon For Inj 1 Mg Vial) 1 mg IM UD PRN; Protocol PRN Reason: Hypoglycemia Protocol Stop: 08/21/23 15:14 Glucose (Glucose 40% Gel 15 Gm Tube) 15 - 30 gm PO UD PRN; Protocol PRN Reason: Hypoglycemia Protocol Stop: 08/21/23 15:14 Glucose (Glucose 10 Tab/Tube) 4 - 8 tab PO UD PRN; Protocol PRN Reason: Hypoglycemia Protocol Stop: 08/21/23 15:14 Hydromorphone HCl (Hydromorphone Inj 0.5 Mg/0.5 Ml Syr) 0.5 mg IV Q3H PRN PRN Reason: MODERATE Pain (Scale 4,5,6) & Pre PT Stop: 08/05/23 14:50 Hydromorphone HCl (Hydromorphone Inj 1 Mg/Ml Syringe) 1 mg IV Q3H PRN PRN Reason: SEVERE Pain (Scale 7,8,9,10) Stop: 08/05/23 14:50 Hydroxyzine HCl (Hydroxyzine Hcl 25 Mg Tab) 25 mg PO Q8H PRN PRN Reason: Anxiety Stop: 08/21/23 14:50 Promethazine HCl 12.5 mg/ (Sodium Chloride) 50.5 mls @ 202 mls/hr IV Q6H PRN PRN Reason: Nausea &/or Vomiting Stop: 08/21/23 14:50 Lorazepam 0.5 mg/ Syringe 0.5 mls @ 2 mls/min IV Q8H PRN; Protocol PRN Reason: Sedation/Anxiety Stop: 08/21/23 14:50 Dexamethasone 6 mg/ Syringe 1.5 mls @ 1 mls/min IV DAILY [facility] Stop: 07/25/23 09:02 Last Admin: 07/24/23 08:07 Dose: 1 mls/min Influenza Virus Vaccine Quadrival (Do Not Administer Flu Vaccine) 1 each N/A PRN PRN PRN Reason: Notification Stop: 08/21/23 14:50 Insulin Aspart (Insulin Aspart Per Unit Charge) 0 units SC ACHS [facility] Stop: 08/21/23 15:29 Last Admin: 07/24/23 12:07 Dose: 20 units Insulin Glargine (Lantus Per Unit Charge) 30 units SQ QPM [facility] Stop: 08/22/23 20:59 Last Admin: 07/23/23 20:37 Dose: 30 units Lisinopril (Lisinopril 20 Mg Tab) 20 mg PO QAM [facility] Stop: 08/22/23 08:59 Last Admin: 07/24/23 08:06 Dose: 20 mg Lorazepam (Lorazepam 0.5 Mg Tab) 0.5 mg PO Q8H PRN PRN Reason: Sedation/Anxiety Stop: 08/21/23 14:50 Magnesium Hydroxide (Magnesium Hydroxide Susp 30 Ml Udc) 30 ml PO Q24H PRN PRN Reason: Constipation Stop: 08/21/23 14:50 Metoclopramide HCl (Metoclopramide Hcl Inj 5 Mg/Ml 2 Ml Vial) 10 mg IV Q6H PRN PRN Reason: Nausea &/or Vomiting Stop: 08/21/23 14:50 Miscellaneous (Order Awaiting Action: Acebutolol) 1 each N/A QS [facility] Stop: 08/21/23 15:59 Last Admin: 07/24/23 07:38 Dose: Not Given Miscellaneous (Carbohydrates For Hypoglycemia ) 15 - 30 gm PO UD PRN PRN Reason: Hypoglycemia Treatment Stop: 08/21/23 15:14 Miscellaneous Information (Pharmacy Glycemic Mgmt Consult) 1 each N/A UD PRN PRN Reason: Consult Stop: 08/21/23 14:50 Naloxone HCl (Naloxone Hcl 0.4 Mg/1 Ml Vial/Carp) 0.1 mg IV Q5M PRN PRN Reason: Oversedation/Resp depression Stop: 08/21/23 14:50 Ondansetron HCl (Ondansetron Inj 2 Mg/Ml 2 Ml Vial) 4 mg IV Q6H PRN PRN Reason: Nausea &/or Vomiting Stop: 08/21/23 14:50 Ondansetron HCl (Ondansetron 4 Mg Od Tab) 4 mg PO Q6H PRN PRN Reason: Nausea Stop: 08/21/23 14:50 Oxycodone HCl (Oxycodone Hcl Ir 5 Mg Tab (Immediate Release)) 5 - 10 mg PO Q4H PRN PRN Reason: Pain & Pre PT Stop: 08/05/23 14:50 Last Admin: 07/24/23 06:01 Dose: 10 mg Pneumococcal Polyvalent Vaccine (Do Not Administer Pneumococcal Vaccine) 1 each N/A PRN PRN PRN Reason: Notification Stop: 08/21/23 14:50 Polyethylene Glycol (Polyethylene (Miralax) 17 Gm Pack) 17 gm PO Q6 [facility] Stop: 08/22/23 05:59 Last Admin: 07/24/23 11:57 Dose: Not Given Pregabalin (Pregabalin 50 Mg Cap) 50 mg PO HS [facility] Stop: 08/21/23 20:59 Last Admin: 07/23/23 20:36 Dose: 50 mg Pregabalin (Pregabalin 100 Mg Cap) 100 mg PO QAM [facility] Stop: 08/22/23 08:59 Last Admin: 07/24/23 08:06 Dose: 100 mg Rosuvastatin Calcium (Rosuvastatin Calcium 20 Mg Tab) 40 mg PO QPM [facility] Stop: 08/21/23 20:59 Last Admin: 07/23/23 20:36 Dose: 40 mg Senna/Docusate Sodium (Docusate Sodium/Senna 50/8.6mg Tab) 2 tab PO HS [facility] Stop: 08/21/23 20:59 Last Admin: 07/23/23 20:35 Dose: 2 tab Sodium Biphosphate/Sodium Phosphate (Sod Phosphate/Sod Biphosphate Enema 132 Ml Btl) 132 ml RI ONE PRN PRN Reason: Constipation Stop: 08/21/23 14:50 Tramadol HCl (Tramadol Hcl 50 Mg Tablet) 50 - 100 mg PO Q4H PRN PRN Reason: Moderate-Severe pain & Pre PT Stop: 08/21/23 14:50 Last Admin: 07/24/23 09:55 Dose: 100 mg
[2023-07-24] MEDS: amLODIPine BESYLATE 5 MG TAB PO SCH (20:30)
[2023-07-24] MEDS: ACETAMINOPHEN 500 MG TAB PO PRN (20:31)
[2023-07-24] MEDS: ASPIRIN 81 MG ECTAB PO SCH (20:31)
[2023-07-24] MEDS: ROSUVASTATIN CALCIUM 20 MG TAB PO SCH (20:31)
[2023-07-24] MEDS: DOCUSATE SODIUM/SENNA 50/8.6MG TAB PO SCH (20:31)
[2023-07-24] MEDS: PREGABALIN 50 MG CAP PO SCH (20:34)
[2023-07-24] MEDS: LANTUS PER UNIT CHARGE SQ SCH (20:39)
[2023-07-25] MEDS: POLYETHYLENE (MIRALAX) 17 GM PACK PO SCH ×2 (00:04→05:14)
[2023-07-25] MEDS: lisinopril 20 MG TAB PO SCH (08:00)
[2023-07-25] MEDS: dexAMETHasone 6 MG in SYRINGE 0 ML IV SCH (08:01)
[2023-07-25] MEDS: INSULIN ASPART PER UNIT CHARGE SC SCH (08:04)
[2023-07-25] MEDS: PREGABALIN 100 MG CAP PO SCH (08:11)
--- NOTE | 2023-07-25 09:34 | Discharge Summary ---
Date of Service July 25, 2023 Admission HPI Per Admitting Provider This is a 72-year-old male who presents with chronic persistent back and leg pain after failing course of nonoperative care is here for surgical intervention. Principal Diagnosis Lumbar spinal stenosis with neurogenic claudication Discharge Data Allergies Allergy/AdvReac Type Severity Reaction Status Date / Time digoxin Allergy Severe Rash Verified 07/22/23 09:31 Iodinated Contrast Media Allergy Severe Hives Verified 07/25/23 07:39 famotidine [From Pepcid] Allergy Unknown tremors Verified 07/22/23 09:31 suture Allergy Vicryl = Verified 07/22/23 10:32 wound dehiscence Consultations 07/22/23 14:51 Consult Hospitalist Routine Procedures Performed Operation Date: 07/22/23 10:45 Actual Procedures p L2-L4 Decompression and Fusion, Spinal Cord Monitoirng(Not Applicable) - Fred Hook DO Ordered Studies 07/22/23 10:45 FL lumbar spine 2-3V Routine Hospital Course (1) Neurogenic claudication due to lumbar spinal stenosis: Patient one of the question fusion tolerated this well was taken to orthopedic for postoperative. Postoperatively he was up and ambulating throughout his hospital stay he had marked improvement of his leg symptoms. Excellent strength testing. MANASA drain decreased probably. Pain well-controlled. Subsidy discharged home. Discharge orders instructions found in chart for further review. Total Time Total Time Spent Total Time Spent (In Minutes): 20 minutes Discharge Plan Discharge Items Patient Disposition: Home - Home Health Services Reason For Visit: Spinal Stenosis of Lumbar Region with Neurogenic Discharge Diagnosis: Lumbar spinal stenosis with neurogenic claudication Activity: As commented below Non-emergency contact: Primary Care Provider Call non-emergency contact if: you have any medication questions Follow-up/Referrals: Aiden Koch DO [Primary Care Provider] - Diet: Regular Addtl Attending Provider Instructions: ACTIVITY RECOMMENDATIONS: SELF CARE INSTRUCTIONS AFTER THORACIC/LUMBAR FUSIONS 1. You may walk to your tolerance. It is good exercise for your legs and back. Expect some back and intermittent leg aches and pains. 2. You may perform "counter-top" level activities (make a sandwich, suyapa with a project, etc.). 3. No bending or lifting of more than 10 pounds or back twisting of any nature (roll like a log when turning in bed). 4. You may ride in a car for 20-30 minutes at a time. No driving until after your first visit with your doctor. 5. Frequent changes of position and restricting sitting to 30 minutes at a time will help limit the amount of back spasms and stiffness you may experience. 6. You may discontinue the use of ambulatory aids (cane, crutches, etc.) once your strength and confidence allow. 7. You may financial investment adviser the shower and let water strike your incision when you arrive home at least once daily. Do not take a tub bath, sit in a hot tub or go into a swimming pool until after your first recheck in the office. SPECIAL CARE INSTRUCTIONS: VERY IMPORTANT TO READ AND REVIEW A. Your surgical incision has been closed with a cosmetic suture under the skin that will dissolve in about 6 weeks. In 14 days, you can use a pair of clean scissors and cut the suture that is left outside of the skin at the ends of your incision. 1. The small skin tapes can be removed 7 days after surgery if they have not fallen off by that point. 2. You may keep the wound open to air as much as possible to promote healing after post-op day number 5 unless told otherwise by your doctor. 3. If you think the wound looks like it is becoming infected (redness or worsening drainage) and/or you are experiencing fever, chill or worsening back pain and muscle spasms, contact the office so that we may evaluate you as soon as possible. B. Complications are uncommon, but please contact us if you have any signs or symptoms of: 1. wound infection (fever higher than 102.5 degrees F, redness, separation of wound, drainage, or increasing pain from the incision) 2. blood clots in legs (pain, swelling, redness and warmth in legs) 3. urinary tract infection (fever higher than 102.5 degrees F, burning upon urination or increased frequency of urination) 4. nerve problems (inability to walk on your toes or heels, numbness, loss of bowel or bladder control) 5. any other symptoms that concern you C. Please call the office at if you have any concerns or questions about your operation or recovery. D. No smoking! Smoking drastically decreases the chance of a solid fusion. E. Do not take any anti-inflammatory medications (Indocin, Advil, Motrin, Aspirin, Naprosyn, etc.) as these may inhibit the chance of a solid fusion. Tylenol is okay to take for pain. MANAGING PAIN AFTER SPINAL SURGERY 1. Narcotic medication is intended for short-term use and will be provided for surgical pain. Surgical pain usually lasts for a period of 4-6 weeks. Narcotic medication includes Percocet, Vicodin, Darvocet, Tylenol #3 or Lortab. 2. Longer-term pain is more appropriately treated with non-narcotic medication such as Tylenol ES. 3. Muscle spasm is not appropriately treated with narcotics. Muscle relaxers such as Soma, Flexeril or Skelaxin can be used along with Tylenol ES. 4. Remember that we all live with some "aches and pains". This is not unusual or uncommon after an injury or as we get older. a. Back pain is expected and may include muscle spasms for 4 to 6 weeks after surgery. The pain should gradually improve. If the pain worsens for no apparent reason, please contact the office. b. Intermittent leg pain may also be experienced and should not be concerned about unless it worsens for no apparent reason. If so, please contact the office. 5. We will provide appropriate medication within the normal guidelines of their prescribed use. We will also be very cautious and aware of potential abuse and extended duration of patients' medication needs. a. Pain medications are for your comfort and to assist with sleep and rest so that the tissue can heal. They are not provided in order to return to normal activity and should not be used through the day. To do so or worsening pain at night can result from ongoing tissue damage and development of tolerance to the prescribed medicine. 6. Please allow 2-3 days to process refills. Prescriptions will not be mailed but must be picked up at the office. FOLLOW UP VISIT: Keep your scheduled follow-up appointment. Any questions, please call the office at . Pending Studies at Discharge: No Stand-Alone Forms: [facility], Smoking Cessation Medications and NM Order Prescriptions: New tramadol 50 mg tablet 50 mg PO Q6H PRN (Reason: pain, moderate) Qty: 30 0RF oxycodone 5 mg tablet 5 mg PO Q6H PRN (Reason: pain) Qty: 30 0RF Continued acebutolol 400 mg Capsule 400 mg PO BID aspirin 81 mg Tablet 81 mg PO QPM clopidogrel [Plavix] 75 mg Tablet 75 mg PO QAM Levemir U-100 Insulin 100 unit/mL Solution 30 unit SUBCUT HS Janumet XR 100-1,000 mg Tablet, Er Multiphase 24 Hr 1 tab PO PM Jardiance 10 mg Tablet 10 mg PO QAM nitroglycerin [Nitrostat] 0.3 mg Tablet, Sublingual sublingual UD PRN (Reason: prn) lisinopril 20 mg Tablet 20 mg PO QAM amlodipine 2.5 mg Tablet 2.5 mg PO QPM acetaminophen 650 mg Tablet 650 mg PO Q8H PRN (Reason: prn) ibuprofen 100 mg Tablet 200 mg PO Q6H PRN (Reason: prn) rosuvastatin [Crestor] 40 mg Tablet 40 mg PO QPM pregabalin [Lyrica] 50 mg Capsule 50 mg PO UD Patient Comments: 100mg QAM and 50mg HS Discharge Orders: Discharge Order (Routine); Ordered 07/25/23 Ordered By: Fred Hook Admission Data Admit Date/Time: 07/22/23 13:02 Attending Provider: Fred Hook Admit Provider: Fred Hook Primary Care Provider: Aiden Koch Other Providers: Briseyda Corbin; Hair Garibay
[2023-07-25] MEDS: ACETAMINOPHEN 500 MG TAB PO PRN (10:46)
--- NOTE | 2023-07-26 10:13 | Electrocardiogram Report ---
Test Reason : Blood Pressure : / mmHG Vent. Rate : 057 BPM Atrial Rate : 057 BPM P-R Int : 152 ms QRS Dur : 100 ms QT Int : 450 ms P-R-T Axes : 050 -24 -38 degrees QTc Int : 438 ms Poor data quality, interpretation may be adversely affected Sinus bradycardia Inferior infarct , age undetermined Abnormal ECG No previous ECGs available Confirmed by Neptali Cardoso ([id number]) on 07/26/2023 10:12:54 AM Referred By: Fred Hook Confirmed By:Bertrand Cardoso
== END 2023-07-25 10:51 | disposition home health service (06) | DRG 455 ==
LOC: ASU 09:06 → 3E 13:02